=== PATIENT | female | born 1970 | race Caucasian/White ===

== ENCOUNTER 2016-11-20 12:49 | Emergency (ER) | payer OTHER ==
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
--- NOTE | 2016-11-20 14:39 | ED MAR SUMMARY ---
..... Medication Administration [facility] [address] [place], [place] [id number] Patient: MAYE FELIX Visit ID: [id number] 46y, F Weight: 133.8 kg Height/Length: 65 in BMI: 49.1 ALLERGIES: No Known Drug Allergy
--- NOTE | 2016-11-20 14:39 | ED DISCHARGE INSTRUCTIONS ---
Patient: MAYE FELIX General Instructions [facility] VisitID: [id number] [place] [address] 46y, F Registration Date/Time: 11/20/2016 Acute viral sinusitis. No airway obstruction. INSTRUCTIONS Alternate Tylenol (Acetaminophen) and Motrin (Ibuprofen) for fever, temperature greater than 101 degrees orally. Take according to label instructions. Drink plenty of fluids for the next 24 hours until better. Warnings: GENERAL WARNINGS: Return or contact your physician immediately if your condition worsens or changes unexpectedly, if not improving as expected, or if other problems arise. Specifically return if problem worsens. Prescription Medications: Nasacort nasal spray: 2 sprays in each nostril once daily as needed for allergies. Dispense one (1) unit. No refills. Substitution is permissible. Follow-up: Follow up with your doctor in about five days as needed. Call for an appointment. Summary of care provided to patient. Understanding of the discharge instructions verbalized by patient. ADDITIONAL INFORMATION Viral Respiratory Illness [Adult] You have an Upper Respiratory Illness (URI) caused by a virus. This illness is contagious during the first few days. It is spread through the air by coughing and sneezing or by direct contact (touching the sick person and then touching your own eyes, nose or mouth). Most viral illnesses go away within 7-10 days with rest and simple home remedies. Sometimes, the illness may last for several weeks. Antibiotics will not kill a virus and are generally not prescribed for this condition. Home Care: 1) If symptoms are severe, rest at home for the first 2-3 days. When you resume activity, don't let yourself get too tired. 2) Avoid being exposed to cigarette smoke (yours or others). 3) Tylenol (acetaminophen) or ibuprofen (Advil, Motrin) will help fever, muscle aching and headache. (Persons under 18 with fever should not take aspirin since this may cause liver damage.) 4) Your appetite may be poor, so a light diet is fine. Avoid dehydration by drinking 6-8 glasses of fluids per day (water, soft drinks, juices, tea, soup). Extra fluids will help loosen secretions in the nose and lungs. 5) Jgyn-[id number] cold medicines will not shorten the length of time youre sick, but they may be helpful for the following symptoms: cough (Robitussin DM); sore throat (Chloraseptic lozenges or spray); nasal and sinus congestion (Actifed, Sudafed, Chlortrimeton). Follow Up with your doctor or as advised if you dont improve over the next week. Get Prompt Medical Attention if any of the following occur: -- Cough with lots of colored sputum (mucus) or blood in your sputum -- Chest pain, shortness of breath, wheezing or have trouble breathing -- Severe headache; face, neck or ear pain -- Fever over 100.4 F (38.0 C) for more than three days -- You cant swallow due to throat pain Fever Control (Adult) A fever is a natural reaction of the body to an illness. In most cases, the temperature itself is not harmful. It actually helps the body fight infections. A fever does not need to be treated unless you feel very uncomfortable. Home Care If you feel warm, check your temperature. If you feel very uncomfortable and your temperature is at or higher than 100.4F (38C) oral, you may take acetaminophen (Tylenol) every 4 to 6 hours. If you cant take or keep down oral medicine, ask your pharmacist for Tylenol suppositories, which you can get without a prescription. If the fever does not respond to acetaminophen within 1 hour, take ibuprofen (Advil or Motrin). If this works, keep taking the ibuprofen every 6 to 8 hours. Note: If you have chronic liver or kidney disease or ever had a stomach ulcer or GI bleeding, talk with your doctor before using these medications. If either medication alone does not keep the fever down, you may alternate the two medicines every 3 to 4 hours, only if your healthcare provider has instructed you to do so. For example, take Motrin then wait 3 hours, take Tylenol then wait 3 hours, take Motrin, and so on. Follow your healthcare providers instructions exactly. Clothing: Keep clothing light because excess body heat is lost through the skin. The fever will go up if you wear extra layers or wrap in blankets. Fluids: Fever causes the body to lose water through evaporation. Drink plenty of fluids such as water, juice, clear sodas, samy hiren, or lemonade. Do not use aspirin in anyone under 18 years of age who is ill with a fever. It can cause severe liver damage. Follow Up with your doctor or as advised by our staff if you do not get better after 48 hours. Get Prompt Medical Attention if any of the following occur: Fever does not get better after taking fever medication Fast or difficult breathing Earache, sinus pain, stiff or painful neck, headache, repeated diarrhea or vomiting You feel unusually irritable, drowsy, or confused A rash appears You feel weak or dizzy, or that you might faint Triamcinolone Acetonide Nasal spray What is this medicine? TRIAMCINOLONE (trye am SIN oh lone) nasal spray is a corticosteroid. It is used to treat the nasal symptoms of seasonal and year round allergies. How should I use this medicine? This medicine is for use in the nose. Follow the directions on your prescription label. This medicine works best if used regularly. Do not use more often than directed. Make sure that you are using your nasal spray correctly. Ask you doctor or health care provider if you have any questions. Talk to your chucking and sawing machine operator regarding the use of this medicine in children. While this drug may be prescribed for children as young as 2 years of age for selected conditions, precautions do apply. What side effects may I notice from receiving this medicine? Side effects that you should report to your doctor or health residential child care counselor as soon as possible: allergic reactions like skin rash, itching or hives, swelling of the face, lips, or tongue change in vision dizziness infection nosebleed, burning in the nose trouble breathing, wheezing unusual bruising white patches or sores in the nose Side effects that usually do not require medical attention (report to your doctor or health residential child care counselor if they continue or are bothersome): congestion cough headache nausea runny nose sneezing What may interact with this medicine? Interactions are not expected. What if I miss a dose? If you miss a dose, take it as soon as you can. If it is almost time for your next dose, take only that dose. Do not take double or extra doses. Where should I keep my medicine? Keep out of the reach of children. Store at room temperature between 20 and 25 degrees C (68 and 77 degrees F). Throw away the canister after 120 sprays or after the expiration date, whichever comes first. What should I tell my health care provider before I take this medicine? They need to know if you have any of these conditions: infection, like tuberculosis, herpes, or fungal infection recent surgery or injury of nose or sinuses taking corticosteroids by mouth an unusual or allergic reaction to triamcinolone, corticosteroids, other medicines, foods, dyes, or preservatives or trying to get breast-feeding What should I watch for while using this medicine? Check with your doctor or health residential child care counselor if your symptoms do not improve in 1 week of regular use or if they get worse. Do not come in contact with people who have chickenpox or the measles while you are taking this medicine. If you do, call your doctor right away. You have been given the following additional information: Uri, Viral, No Abx (Adult) Fever Control (Adult) Triamcinolone Acetonide Nasal spray (Electronically signed by Sherley Haider A.R.N.P. 11/20/2016 14:38)
--- NOTE | 2016-11-20 14:39 | ED MED RECONCILIATION SUMMARY ---
Patient: MAYE FELIX Medication Reconciliation Report [facility] VisitID: [id number] [address] [place] [address] 46y, F Registration Date/Time: 11/20/2016 Weight: 133.8 kg Height/Length: 65 in. BMI: 49.1 ALLERGIES: No Known Drug Allergy The patient's Home Medications are listed below: THE FOLLOWING MEDICATIONS NEED TO BE RECONCILED: Effexor XR Oral 75 mg Metoprolol Succinate ER Oral The source(s) of the original Home Medication information: Not obtained. The following Medications were given to the patient in the Emergency Department: None. The following Medications were prescribed to the patient: Nasacort nasal spray: 2 sprays in each nostril once daily as needed for allergies. Dispense one (1) unit. No refills. Substitution is permissible. -- Sherley Haider A.R.N.P.
--- NOTE | 2016-11-20 14:39 | ED MAR SUMMARY ---
..... Medication Administration Record [facility] [address] [place], [place] [id number] Patient: MAYE FELIX Visit ID: [id number] 46y, F Weight: 133.8 kg Height/Length: 65 in BMI: 49.1 ALLERGIES: No Known Drug Allergy
--- NOTE | 2016-11-20 14:39 | ED MED RECONCILIATION SUMMARY ---
Patient: MAYE FELIX Medication Reconciliation Report [facility] VisitID: [id number] [address] [place] [address] 46y, F Registration Date/Time: 11/20/2016 Weight: 133.8 kg Height/Length: 65 in. BMI: 49.1 ALLERGIES: No Known Drug Allergy The patient's Home Medications are listed below: THE FOLLOWING MEDICATIONS NEED TO BE RECONCILED: Effexor XR Oral 75 mg Metoprolol Succinate ER Oral The source(s) of the original Home Medication information: Not obtained. The following Medications were given to the patient in the Emergency Department: None. The following Medications were prescribed to the patient: Nasacort nasal spray: 2 sprays in each nostril once daily as needed for allergies. Dispense one (1) unit. No refills. Substitution is permissible. -- Sherley Hiader A.R.N.P.
== END 2016-11-20 14:08 | disposition home or self-care (01) ==
LOC: ED SRH 12:49
DX: J01.80 Other acute sinusitis (principal); B97.89 Other viral agents as the cause of diseases classified elsewhere

== ENCOUNTER 2016-12-15 17:13 | Emergency (ER) | payer OTHER ==
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
--- NOTE | 2016-12-15 20:37 | ED ORDER SUMMARY ---
..... Patient: MAYE FELIX OrderSheet [facility] VisitID: [id number] [address] [place] [address] 46y, F Registration Date/Time: 12/15/2016 ORDER SHEET Weight: 172.3 kg (stated) Allergies: No Known Drug Allergy GENERAL ORDERS: UA-Culture if indicated Urgent (18:48 12/15/2016 Jona Gonzalez.NLincoln verbal order read back to Chandrakant KOCH) (18:50 TBergley) MEDICATION ORDERS: Toradol IM 60 mg (NOW) (19:54 12/15/2016 Chandrakant KOCH) (20:27 Elizabeth Gonzalez.NLincoln) Dilaudid IM 2 mg (HIGH ALERT MEDICATION, NOW) (19:54 12/15/2016 Chandrakant KOCH) (20:27 Elizabeth Gonzalez.NLincoln) IV FLUIDS: ORDER SHEET NOTES: [Electronically signed by Rohit Bryan R.N. (20:51 12/15/2016)] [Electronically signed by Lyudmila Nguyen MD (11:16 12/19/2016)] [Electronically locked/signed by Rohit Bryan R.N. (20:51 12/15/2016)]
--- NOTE | 2016-12-15 20:37 | ED ORDER SUMMARY ---
..... Patient: MAYE FELIX OrderSheet [facility] VisitID: [id number] [address] [place] [address] 46y, F Registration Date/Time: 12/15/2016 ORDER SHEET Weight: 172.3 kg (stated) Allergies: No Known Drug Allergy GENERAL ORDERS: UA-Culture if indicated Urgent (18:48 12/15/2016 Jona Gonzalez.NLincoln verbal order read back to Chandrakant KOCH) (18:50 TBergley) MEDICATION ORDERS: Toradol IM 60 mg (NOW) (19:54 12/15/2016 Chandrakant KOCH) (20:27 Elizabeth Gonzalez.NLincoln) Dilaudid IM 2 mg (HIGH ALERT MEDICATION, NOW) (19:54 12/15/2016 Chandrakant KOCH) (20:27 Elizabeth Gonzalez.NLincoln) IV FLUIDS: ORDER SHEET NOTES: [Electronically signed by Rohit Bryan R.N. (20:51 12/15/2016)] [Electronically signed by Lyudmila Nguyen MD (11:16 12/19/2016)] [Electronically locked/signed by Rohit Bryan R.N. (20:51 12/15/2016)]
--- NOTE | 2016-12-19 11:16 | ED DISCHARGE INSTRUCTIONS ---
Patient: MAYE FELIX General Instructions [facility] VisitID: [id number] [address] [place] [address] 46y, F Registration Date/Time: 12/15/2016 Acute nontraumatic lumbar back pain associated with muscle strain. INSTRUCTIONS Apply ice for 20 minutes three times a day as needed and until better. Don't apply ice directly to skin and don't use while asleep. Warnings: SEDATIVE MEDICATION: You were given sedative medication during your visit. Do not drive or operate dangerous machinery for 6 hours. GENERAL WARNINGS: Return or contact your physician immediately if your condition worsens or changes unexpectedly, if not improving as expected, or if other problems arise. Your Current Medications: CONTINUE TAKING THE FOLLOWING MEDICATIONS: Effexor XR Oral : 75 mg. Metoprolol Succinate ER Oral. Prescription Medications: Hydrocodone/APAP 5mg / 325mg: take 1-2 orally every 4 hours as needed for pain. Dispense twenty (20). No refill. Follow-up: Follow up with your doctor in one week if not better. Understanding of the discharge instructions verbalized by patient. ADDITIONAL INFORMATION Back Spasm [No Trauma] Spasm of the back muscles can occur after a sudden forceful twisting or bending force (such as in a car accident), after a simple awkward movement, or after lifting something heavy with poor body positioning. In either case, muscle spasm is often present and adds to the pain.Sleeping in an awkward position or on a poor quality mattress can also cause this. Some persons respond to emotional stress by tensing the muscles of their back. The treatment described below will usually help the pain to go away in 5-7 days. Pain that continues may require further evaluation or other types of treatment such as physical therapy. Unless you had a physical injury (for example, a car accident or fall), x-rays are usually not ordered for the initial evaluation of back pain. If pain continues and does not respond to medical treatment, x-rays and other tests may be performed at a later time. Home Care: You may need to stay in bed the first few days. But, as soon as possible, begin sitting or walking to avoid problems with prolonged bed rest (muscle weakness, worsening back stiffness and pain, blood clots in the legs). When in bed, try to find a position of comfort. A firm mattress is best. Try lying flat on your back with pillows under your knees. You can also try lying on your side with your knees bent up toward your chest and a pillow between your knees. Avoid prolonged sitting. This puts more stress on the lower back than standing or walking. Some persons find relief with heat (hot shower, hot bath, or heating pad) and massage, while others prefer cold packs (crushed or cubed ice in a plastic bag, wrapped in a towel). Try both and use the method that feels best for 20 minutes several times a day. You may use acetaminophen (Tylenol) or ibuprofen (Motrin, Advil) to control pain, unless another pain medicine was prescribed. [NOTE: If you have chronic liver or kidney disease or ever had a stomach ulcer or GI bleeding, talk with your doctor before using these medicines.] Gentle stretching will help your back heal faster. Perform this simple routine 2-3 times a day until your back is feeling better. LOW BACK STRETCH Lie on your back with your knees bent and both feet on the ground. Slowly raise your left knee to your chest as you flatten your lower back against the floor. Hold for 5 seconds. Relax and repeat the exercise with your right knee. Do 10 of these exercises for each leg. Repeat, hugging both knees to your chest at the same time. Be aware of safe lifting methods and do not lift anything over 15 pounds until all the pain is gone. Follow Up with your doctor or this facility if your symptoms do not start to improve after one week. Physical therapy or further tests may be needed. [NOTE: If x-rays were taken, they will be reviewed by a radiologist. You will be notified of any new findings that may affect your care.] Return Promptly or contact your doctor if any of the following occurs: Pain becomes worse or spreads to your legs Weakness or numbness in one or both legs Loss of bowel or bladder control Numbness in the groin or genital area Unexplained fever over 100.4F (38.0C) Burning or pain when passing urine You have been given the following additional information: Back Spasm, No Trauma (Electronically signed by Lyudmila Nguyen MD 12/19/2016 11:16)
--- NOTE | 2016-12-19 11:16 | ED MAR SUMMARY ---
..... Medication Administration Record [facility] [address] [place] [address] Patient: MAYE FELIX Visit ID: [id number] 46y, F Weight: 172.3 kg Height/Length: 69 in BMI: 56.1 ALLERGIES: No Known Drug Allergy Given 20:12/15/2016 Rohit Bryan R.N. Medication Administered: TORADOL [IM] (KETOROLAC TROMETHAMINE), Dose: 60 mg IM. Medication Ordered: Toradol IM 60 mg (NOW). Given 20:12/15/2016 Rohit Bryan R.N. Medication Administered: DILAUDID [IM] (HYDROMORPHONE HCL PF), Dose: 2 mg IM. Medication Ordered: Dilaudid IM 2 mg (HIGH ALERT MEDICATION, NOW).
--- NOTE | 2016-12-19 11:16 | ED MED RECONCILIATION SUMMARY ---
Patient: MAYE FELIX Medication Reconciliation Report [facility] VisitID: [id number] [address] [place] [address] 46y, F Registration Date/Time: 12/15/2016 Weight: 172.3 kg Height/Length: 69 in. BMI: 56.1 ALLERGIES: No Known Drug Allergy The patient's Home Medications are listed below: CONTINUE TAKING THE FOLLOWING MEDICATIONS: Effexor XR Oral 75 mg Metoprolol Succinate ER Oral The source(s) of the original Home Medication information: Not obtained. The following Medications were given to the patient in the Emergency Department: Toradol [IM] IM 60 mg, administered: 12/15/2016 8:27:00 PM Dilaudid [IM] IM 2 mg, administered: 12/15/2016 8:27:00 PM The following Medications were prescribed to the patient: Hydrocodone/APAP 5mg / 325mg: take 1-2 orally every 4 hours as needed for pain. Dispense twenty (20). No refill. -- Lyudmila Nguyen MD
--- NOTE | 2016-12-19 11:16 | ED MED RECONCILIATION SUMMARY ---
Patient: MAYE FELIX Medication Reconciliation Report VisitID: [id number] [address] [place] [address] 46y, F Registration Date/Time: 12/15/2016 Weight: 172.3 kg Height/Length: 69 in. BMI: 56.1 ALLERGIES: No Known Drug Allergy The patient's Home Medications are listed below: CONTINUE TAKING THE FOLLOWING MEDICATIONS: Effexor XR Oral 75 mg Metoprolol Succinate ER Oral The source(s) of the original Home Medication information: Not obtained. The following Medications were given to the patient in the Emergency Department: Toradol [IM] IM 60 mg, administered: 12/15/2016 8:27:00 PM Dilaudid [IM] IM 2 mg, administered: 12/15/2016 8:27:00 PM The following Medications were prescribed to the patient: Hydrocodone/APAP 5mg / 325mg: take 1-2 orally every 4 hours as needed for pain. Dispense twenty (20). No refill. -- Lyudmila Nguyen MD
--- NOTE | 2016-12-19 11:16 | ED MAR SUMMARY ---
..... Medication Administration Record [facility] [address] [place] [address] Patient: MAYE FELIX Visit ID: [id number] 46y, F Weight: 172.3 kg Height/Length: 69 in BMI: 56.1 ALLERGIES: No Known Drug Allergy Given 20:12/15/2016 Rohit Bryan R.N. Medication Administered: TORADOL [IM] (KETOROLAC TROMETHAMINE), Dose: 60 mg IM. Medication Ordered: Toradol IM 60 mg (NOW). Given 20:12/15/2016 Rohit Bryan R.N. Medication Administered: DILAUDID [IM] (HYDROMORPHONE HCL PF), Dose: 2 mg IM. Medication Ordered: Dilaudid IM 2 mg (HIGH ALERT MEDICATION, NOW).
== END 2016-12-15 20:55 | disposition home or self-care (01) ==
LOC: ED SRH 17:13
DX: S39.012A Strain of muscle, fascia and tendon of lower back, initial encounter (principal); X58.XXXA Exposure to other specified factors, initial encounter; Y93.9 Activity, unspecified; Y92.9 Unspecified place or not applicable; Y99.9 Unspecified external cause status; I10 Essential (primary) hypertension; Z79.899 Other long term (current) drug therapy
CPT/HCPCS: 90004

== ENCOUNTER 2017-03-10 19:24 | Emergency (ER) | payer OTHER ==
--- NOTE | 2017-03-10 20:33 | ED NURSING NOTES ---
Clinical Report - Nurses [facility] [place] [address] 03/10/2017 19:25 Patient: MAYE FELIX TRIAGE Triage time 19:43. Acuity: LEVEL 4. Chief Complaint: INJURY TO THE RIGHT SCAPULA AREA, RIGHT SHOULDER and RIGHT CLAVICLE AREA. --19:48 Romi Kent R.N. 19:43 03/10/17. BP: 147/75. HR: 80. RR: 18. O2 saturation: 95%. Temp: 97.9 F. Pain level now: 06/01. --19:48 Romi Kent R.N. Weight: 172.3 kg stated. Height/Length: 69 inches Per Patient. BMI: 56.1. --19:45 Romi Kent R.N. Medications Unknown Blood Pressure Medicine. --19:44 Romi Kent R.N. Allergies No Known Drug Allergy. --19:44 Romi Kent R.N. History This occurred today (5 hours ago). ( right arm aching). 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 SOCIAL HX: Never smoker. Alcohol use; consumes beer occasionally. No drug use. --19:48 Romi Kent R.N. PROBLEMS: Depression . Back Pain. URI. Hypertension. Arthritis. --19:44 Romi Kent R.N. ADDITIONAL SURGERIES: Breast reduction. Salpingectomy. Tonsillectomy. Wrist cyst removal. --19:44 Romi Kent R.N. Interventions ID band on patient. To treatment room. --19:48 Romi Kent R.N. PHYSICAL ASSESSMENT Ambulatory to room. GENERAL / NEURO / PSYCH: Oriented X 4. Appears in no acute distress. HEENT: Right clavicle area: tenderness. EXTREMITIES: Right scapula area: tenderness. Capillary refill is less than 2 seconds in the extremities. Extremity pulses are within normal limits. Neuro-vascular status intact to the extremity. Right shoulder: tenderness. ( ROM diminited due to pain.). SKIN: Skin is warm and dry. --19:48 Romi Kent R.N. NURSING PROGRESS NOTES Cold pack applied. Reassurance given. Call light placed in reach. Side rails up x 1. Patient ready for evaluation- chart flagged. Patient waiting for evaluation. --19:48 Romi Kent R.N. 20:39 03/10/2017 Ativan (LORazepam) PO Tablets 2 mg given. Allergies verified, confirmed 5 rights and sedative warning given to the patient and patient's family. --20:39 Romi Kent R.N. 20:39 03/10/2017 Toradol (Ketorolac Tromethamine) IM 60 mg given. Given in the right gluteus jerel. Allergies verified and confirmed 5 rights. --20:39 Romi Kent R.N. DISPOSITION / DISCHARGE Condition at departure: unchanged and stable. Discharge instructions provided and reviewed with the patient and family. Reviewed warnings (sedative effect of ativan given in ER). Reviewed medication(s) side effects, precautions and dosing information. Prescription(s) given to the patient. Patient and family verbalized understanding. Written instructions provided in [place]. The patient was discharged by the physician assistant city attorney. She was discharged home and accompanied by family. She left the Emergency Department ambulatory and via private vehicle. Family member driving. --20:47 Romi Kent R.N. 20:46 03/10/17. BP: 168/86. HR: 74. RR: 18. O2 saturation: 94%. Pain level now: 04/01. --20:47 Romi Kent R.N. Departure time: 2047. --20:48 Romi Kent R.N. Locked/Released at 03/13/2017 8:13 by Romi Kent R.N.
--- NOTE | 2017-03-10 20:33 | ED CLINICAL REPORT ---
Clinical Report - Physicians/Mid Levels [facility] [address] [place] [address] 03/10/2017 19:25 Patient: MAYE FELIX Time Seen: 20:24 Mar 10 2017. Arrived- By private vehicle. HISTORY OF PRESENT ILLNESS Location of injuries- upper back. Chief Complaint: Injury to BACK. The injury occurred today about 6 hours ago. 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 she felt a sharppain across her back. no weakness or numbness. no previous injuries in this location.). Occurred at work. The patient complains of moderate pain. No blow to the head, neck pain or loss of consciousness. REVIEW OF SYSTEMS No numbness, weakness, difficulty breathing, nausea or vomiting. All systems otherwise negative, except as recorded above. PAST HISTORY See nurses notes. SOCIAL HISTORY Never smoker. Alcohol use. ADDITIONAL NOTES The nursing notes have been reviewed. PHYSICAL EXAM Appearance: Alert. Oriented X3. No acute distress. Head: No swelling of head. Neck: Painless ROM. Non-tender. CVS: Heart sounds normal. Pulses normal. Respiratory: Breath sounds normal. Chest nontender. No decreased breath sounds. Back: Moderate tenderness in the right upper thoracic area. Mild muscle spasm in the right upper thoracic spine region. ROM normal. No vertebral point tenderness. Skin: Skin intact. Skin warm and dry. Normal skin color. Normal skin turgor. Extremities: Normal inspection. Extremities atraumatic. Neuro: Oriented X 3. No motor deficit. No sensory deficit. PROGRESS AND PROCEDURES Course of Care: 20:28 03/10/17. Pt stable. She has mild muscle spasm with pain on palpation. I discussed muscle strain and usual course. symptomatic treatment here and will discharge home. i completed her workers comp paperwork. Discharge decision based on the following: patient's condition is stable; patient's condition is improved; social support is adequate; transportation is available; clinical impression is consistent with outpatient treatment. CLINICAL IMPRESSION Muscle strain of the upper back. INSTRUCTIONS Right arm until well and for 5 days. Do not work for two days. No dietary restrictions. Warnings: SEDATIVE MEDICATION: You were given sedative medication during your visit. Do not drive or operate dangerous machinery today. CONTROLLED SUBSTANCE WARNINGS. Prescription Medications: Hydrocodone/APAP 5mg / 325mg: take 1-2 orally every 6 hours as needed for pain. Dispense fifteen (15). No refill. Flexeril 5 mg: take 1-2 orally every 8 hours as needed for muscle spasm. Dispense ten (10). No refills. Substitution is permissible. OTC Medications: Motrin IB 200 mg (available over the counter): take 3 orally every 8 hours for 5 days, as needed for pain or stiffness Understanding of the discharge instructions verbalized by patient. (Electronically signed by Jeffy Grayson, 03/10/2017 23:12)
--- NOTE | 2017-03-10 20:33 | ED ORDER SUMMARY ---
..... Patient: MAYE FELIX OrderSheet [facility] VisitID: [id number] [address] [place] [address] 47y, F Registration Date/Time: 03/10/2017 ORDER SHEET Weight: 172.3 kg (stated) Allergies: No Known Drug Allergy GENERAL ORDERS: MEDICATION ORDERS: Ativan PO 2 mg (NOW) (20:03/10/2017 JCoates) (20:39 SStone R.N.) Toradol IM 60 mg (NOW) (20:03/10/2017 JCoates) (20:39 SStone R.N.) IV FLUIDS: ORDER SHEET NOTES: [Electronically signed by Jeffy Grayson (23:12 03/10/2017)] [Electronically signed by Romi Kent R.N. (08:13 03/13/2017)] [Electronically locked/signed by Romi Kent R.N. (08:13 03/13/2017)]
--- NOTE | 2017-03-10 20:33 | ED NURSING NOTES ---
Clinical Report - Nurses [facility] [place] [address] 03/10/2017 19:25 Patient: MAYE FELIX TRIAGE Triage time 19:43. Acuity: LEVEL 4. Chief Complaint: INJURY TO THE RIGHT SCAPULA AREA, RIGHT SHOULDER and RIGHT CLAVICLE AREA. --19:48 Romi Kent R.N. 19:43 03/10/17. BP: 147/75. HR: 80. RR: 18. O2 saturation: 95%. Temp: 97.9 F. Pain level now: 06/01. --19:48 Romi Kent R.N. Weight: 172.3 kg stated. Height/Length: 69 inches Per Patient. BMI: 56.1. --19:45 Romi Kent R.N. Medications Unknown Blood Pressure Medicine. --19:44 Romi Kent R.N. Allergies No Known Drug Allergy. --19:44 Romi Kent R.N. History This occurred today (5 hours ago). ( right arm aching). 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 SOCIAL HX: Never smoker. Alcohol use; consumes beer occasionally. No drug use. --19:48 Romi Kent R.N. PROBLEMS: Depression . Back Pain. URI. Hypertension. Arthritis. --19:44 Romi Kent R.N. ADDITIONAL SURGERIES: Breast reduction. Salpingectomy. Tonsillectomy. Wrist cyst removal. --19:44 Romi Kent R.N. Interventions ID band on patient. To treatment room. --19:48 Romi Kent R.N. PHYSICAL ASSESSMENT Ambulatory to room. GENERAL / NEURO / PSYCH: Oriented X 4. Appears in no acute distress. HEENT: Right clavicle area: tenderness. EXTREMITIES: Right scapula area: tenderness. Capillary refill is less than 2 seconds in the extremities. Extremity pulses are within normal limits. Neuro-vascular status intact to the extremity. Right shoulder: tenderness. ( ROM diminited due to pain.). SKIN: Skin is warm and dry. --19:48 Romi Kent R.N. NURSING PROGRESS NOTES Cold pack applied. Reassurance given. Call light placed in reach. Side rails up x 1. Patient ready for evaluation- chart flagged. Patient waiting for evaluation. --19:48 Romi Kent R.N. 20:39 03/10/2017 Ativan (LORazepam) PO Tablets 2 mg given. Allergies verified, confirmed 5 rights and sedative warning given to the patient and patient's family. --20:39 Romi Kent R.N. 20:39 03/10/2017 Toradol (Ketorolac Tromethamine) IM 60 mg given. Given in the right gluteus jerel. Allergies verified and confirmed 5 rights. --20:39 Romi Kent R.N. DISPOSITION / DISCHARGE Condition at departure: unchanged and stable. Discharge instructions provided and reviewed with the patient and family. Reviewed warnings (sedative effect of ativan given in ER). Reviewed medication(s) side effects, precautions and dosing information. Prescription(s) given to the patient. Patient and family verbalized understanding. Written instructions provided in Rwand[place]. The patient was discharged by the physician press assistant and feeder. She was discharged home and accompanied by family. She left the Emergency Department ambulatory and via private vehicle. Family member driving. --20:47 Romi Kent R.N. 20:46 03/10/17. BP: 168/86. HR: 74. RR: 18. O2 saturation: 94%. Pain level now: 04/01. --20:47 Romi Kent R.N. Departure time: 2047. --20:48 Romi Kent R.N. Locked/Released at 03/13/2017 8:13 by Romi Kent R.N.
--- NOTE | 2017-03-10 20:33 | ED ORDER SUMMARY ---
..... Patient: MAYE FELIX OrderSheet [facility] VisitID: [id number] [address] [place] [address] 47y, F Registration Date/Time: 03/10/2017 ORDER SHEET Weight: 172.3 kg (stated) Allergies: No Known Drug Allergy GENERAL ORDERS: MEDICATION ORDERS: Ativan PO 2 mg (NOW) (20:03/10/2017 JCoates) (20:39 SStone R.N.) Toradol IM 60 mg (NOW) (20:03/10/2017 JCoates) (20:39 SStone R.N.) IV FLUIDS: ORDER SHEET NOTES: [Electronically signed by Jeffy Grayson (23:12 03/10/2017)] [Electronically signed by Romi Kent R.N. (08:13 03/13/2017)] [Electronically locked/signed by Romi Kent R.N. (08:13 03/13/2017)]
--- NOTE | 2017-03-13 08:13 | ED MAR SUMMARY ---
..... Medication Administration Record [facility] [address] [place] [address] Patient: MAYE FELIX Visit ID: [id number] 47y, F Weight: 172.3 kg Height/Length: 69 in BMI: 56.1 ALLERGIES: No Known Drug Allergy Given 20:03/10/2017 Romi Kent R.N. Medication Administered: ATIVAN [PO] (LORAZEPAM), Dose: 2 mg Tablets PO. Medication Ordered: Ativan PO 2 mg (NOW). Given 20:03/10/2017 Romi Kent RLincolnNLincoln Medication Administered: TORADOL [IM] (KETOROLAC TROMETHAMINE), Dose: 60 mg IM. Medication Ordered: Toradol IM 60 mg (NOW).
--- NOTE | 2017-03-13 08:13 | ED DISCHARGE INSTRUCTIONS ---
Patient: MAYE FELIX General Instructions [facility] VisitID: [id number] [place] [address] 47y, F Registration Date/Time: 03/10/2017 Muscle strain of the upper back. INSTRUCTIONS Right arm until well and for 5 days. Do not work for two days. No dietary restrictions. Warnings: SEDATIVE MEDICATION: You were given sedative medication during your visit. Do not drive or operate dangerous machinery today. CONTROLLED SUBSTANCE WARNINGS. Prescription Medications: Hydrocodone/APAP 5mg / 325mg: take 1-2 orally every 6 hours as needed for pain. Dispense fifteen (15). No refill. Flexeril 5 mg: take 1-2 orally every 8 hours as needed for muscle spasm. Dispense ten (10). No refills. Substitution is permissible. OTC Medications: Motrin IB 200 mg (available over the counter): take 3 orally every 8 hours for 5 days, as needed for pain or stiffness Understanding of the discharge instructions verbalized by patient. ADDITIONAL INFORMATION Hydrocodone Bitartrate, Acetaminophen Oral tablet What is this medicine? ACETAMINOPHEN; HYDROCODONE (a set a EDDA sylvia fen; jenni droe KOE done) is a pain reliever. It is used to treat mild to moderate pain. How should I use this medicine? Take this medicine by mouth. Swallow it with a full glass of water. Follow the directions on the prescription label. If the medicine upsets your stomach, take the medicine with food or milk. Do not take more than you are told to take. Talk to your geosciences professor regarding the use of this medicine in children. This medicine is not approved for use in children. What side effects may I notice from receiving this medicine? Side effects that you should report to your doctor or health care program resident as soon as possible: allergic reactions like skin rash, itching or hives, swelling of the face, lips, or tongue breathing problems confusion feeling faint or lightheaded, falls stomach pain yellowing of the eyes or skin Side effects that usually do not require medical attention (report to your doctor or health care program resident if they continue or are bothersome): nausea, vomiting stomach upset What may interact with this medicine? alcohol antihistamines isoniazid medicines for depression, anxiety, or psychotic disturbances medicines for sleep muscle relaxants naltrexone narcotic medicines (opiates) for pain phenobarbital ritonavir tramadol What if I miss a dose? If you miss a dose, take it as soon as you can. If it is almost time for your next dose, take only that dose. Do not take double or extra doses. Where should I keep my medicine? Keep out of the reach of children. This medicine can be abused. Keep your medicine in a safe place to protect it from theft. Do not share this medicine with anyone. Selling or giving away this medicine is dangerous and against the law. Store at room temperature between 15 and 30 degrees C (59 and 86 degrees F). Protect from light. Keep container tightly closed. Throw away any unused medicine after the expiration date. Discard unused medicine and used packaging carefully. Pets and children can be harmed if they find used or lost packages. What should I tell my health care provider before I take this medicine? They need to know if you have any of these conditions: brain tumor Crohn's disease, inflammatory bowel disease, or ulcerative colitis drink more than 3 alcohol-containing drinks per day drug abuse or addiction head injury heart or circulation problems kidney disease or problems going to the bathroom liver disease lung disease, asthma, or breathing problems an unusual or allergic reaction to acetaminophen, hydrocodone, other opioid analgesics, other medicines, foods, dyes, or preservatives or trying to get breast-feeding What should I watch for while using this medicine? Tell your doctor or health care program resident if your pain does not go away, if it gets worse, or if you have new or a different type of pain. You may develop tolerance to the medicine. Tolerance means that you will need a higher dose of the medicine for pain relief. Tolerance is normal and is expected if you take the medicine for a long time. Do not suddenly stop taking your medicine because you may develop a severe reaction. Your body becomes used to the medicine. This does NOT mean you are addicted. Addiction is a behavior related to getting and using a drug for a non-medical reason. If you have pain, you have a medical reason to take pain medicine. Your doctor will tell you how much medicine to take. If your doctor wants you to stop the medicine, the dose will be slowly lowered over time to avoid any side effects. You may get drowsy or dizzy when you first start taking the medicine or change doses. Do not drive, use machinery, or do anything that may be dangerous until you know how the medicine affects you. Stand or sit up slowly. There are different types of narcotic medicines (opiates) for pain. If you take more than one type at the same time, you may have more side effects. Give your health care provider a list of all medicines you use. Your doctor will tell you how much medicine to take. Do not take more medicine than directed. Call emergency for help if you have problems breathing. The medicine will cause constipation. Try to have a bowel movement at least every 2 to 3 days. If you do not have a bowel movement for 3 days, call your doctor or health care program resident. Too much acetaminophen can be very dangerous. Do not take Tylenol (acetaminophen) or medicines that contain acetaminophen with this medicine. Many non-prescription medicines contain acetaminophen. Always read the labels carefully. Cyclobenzaprine Hydrochloride Oral tablet What is this medicine? CYCLOBENZAPRINE (syyolande ly) is a muscle relaxer. It is used to treat muscle pain, spasms, and stiffness. How should I use this medicine? Take this medicine by mouth with a glass of water. Follow the directions on the prescription label. If this medicine upsets your stomach, take it with food or milk. Take your medicine at regular intervals. Do not take it more often than directed. Talk to your geosciences professor regarding the use of this medicine in children. Special care may be needed. What side effects may I notice from receiving this medicine? Side effects that you should report to your doctor or health care program resident as soon as possible: allergic reactions like skin rash, itching or hives, swelling of the face, lips, or tongue chest pain fast heartbeat hallucinations seizures vomiting Side effects that usually do not require medical attention (report to your doctor or health care program resident if they continue or are bothersome): headache What may interact with this medicine? Do not take this medicine with any of the following medications: cisapride droperidol flecainide grepafloxacin halofantrine levomethadyl MAOIs like Carbex, Eldepryl, Marplan, Nardil, and Parnate nilotinib pimozide probucol sertindole This medicine may also interact with the following medications: abarelix alcohol contrast dyes dolasetron guanethidine medicines for cancer medicines for depression, anxiety, or psychotic disturbances medicines to treat an irregular heartbeat medicines used for sleep or numbness during surgery or procedure methadone octreotide ondansetron palonosetron phenothiazines like chlorpromazine, mesoridazine, prochlorperazine, thioridazine some medicines for infection like alfuzosin, chloroquine, clarithromycin, levofloxacin, mefloquine, pentamidine, troleandomycin tramadol vardenafil What if I miss a dose? If you miss a dose, take it as soon as you can. If it is almost time for your next dose, take only that dose. Do not take double or extra doses. Where should I keep my medicine? Keep out of the reach of children. Store at room temperature between 15 and 30 degrees C (59 and 86 degrees F). Keep container tightly closed. Throw away any unused medicine after the expiration date. What should I tell my health care provider before I take this medicine? They need to know if you have any of these conditions: heart disease, irregular heartbeat, or previous heart attack liver disease thyroid problem an unusual or allergic reaction to cyclobenzaprine, tricyclic antidepressants, lactose, other medicines, foods, dyes, or preservatives or trying to get breast-feeding What should I watch for while using this medicine? Check with your doctor or health care program resident if your condition does not improve within 1 to 3 weeks. You may get drowsy or dizzy when you first start taking the medicine or change doses. Do not drive, use machinery, or do anything that may be dangerous until you know how the medicine affects you. Stand or sit up slowly. Your mouth may get dry. Drinking water, chewing sugarless gum, or sucking on hard candy may help. Ibuprofen Oral tablet What is this medicine? IBUPROFEN (eye BYOO proe fen) is a non-steroidal anti-inflammatory drug (NSAID). It is used for dental pain, fever, headaches or migraines, osteoarthritis, rheumatoid arthritis, or painful monthly periods. It can also relieve minor aches and pains caused by a cold, flu, or sore throat. How should I use this medicine? Take this medicine by mouth with a glass of water. Follow the directions on the prescription label. Take this medicine with food if your stomach gets upset. Try to not lie down for at least 10 minutes after you take the medicine. Take your medicine at regular intervals. Do not take your medicine more often than directed. A special MedGuide will be given to you by the pharmacist with each prescription and refill. Be sure to read this information carefully each time. Talk to your geosciences professor regarding the use of this medicine in children. Special care may be needed. What side effects may I notice from receiving this medicine? Side effects that you should report to your doctor or health care program resident as soon as possible: allergic reactions like skin rash, itching or hives, swelling of the face, lips, or tongue black or bloody stools, blood in the urine or in vomit breathing problems changes in vision chest pain general ill feeling or flu-like symptoms nausea or vomiting redness, blistering, peeling or loosening of the skin, including inside the mouth slurred speech or weakness on one side of the body stomach pain unexplained weight gain or swelling unusually weak or tired yellowing of eyes or skin Side effects that usually do not require medical attention (report to your doctor or health care program resident if they continue or are bothersome): constipation or diarrhea dizziness gas or heartburn stomach upset What may interact with this medicine? Do not take this medicine with any of the following medications: cidofovir ketorolac methotrexate pemetrexed This medicine may also interact with the following medications: alcohol aspirin diuretics lithium other drugs for inflammation like prednisone warfarin What if I miss a dose? If you miss a dose, take it as soon as you can. If it is almost time for your next dose, take only that dose. Do not take double or extra doses. Where should I keep my medicine? Keep out of the reach of children. Store at room temperature between 15 and 30 degrees C (59 and 86 degrees F). Keep container tightly closed. Throw away any unused medicine after the expiration date. What should I tell my health care provider before I take this medicine? They need to know if you have any of these conditions: asthma cigarette smoker drink more than 3 alcohol containing drinks a day heart disease or circulation problems such as heart failure or leg edema (fluid retention) high blood pressure kidney disease liver disease stomach bleeding or ulcers an unusual or allergic reaction to ibuprofen, aspirin, other NSAIDS, other medicines, foods, dyes, or preservatives or trying to get breast-feeding What should I watch for while using this medicine? Tell your doctor or healthcare professional if your symptoms do not start to get better or if they get worse. This medicine does not prevent heart attack or stroke. In fact, this medicine may increase the chance of a heart attack or stroke. The chance may increase with longer use of this medicine and in people who have heart disease. If you take aspirin to prevent heart attack or stroke, talk with your doctor or health care program resident. Do not take other medicines that contain aspirin, ibuprofen, or naproxen with this medicine. Side effects such as stomach upset, nausea, or ulcers may be more likely to occur. Many medicines available without a prescription should not be taken with this medicine. This medicine can cause ulcers and bleeding in the stomach and intestines at any time during treatment. Ulcers and bleeding can happen without warning symptoms and can cause . To reduce your risk, do not smoke cigarettes or drink alcohol while you are taking this medicine. You may get drowsy or dizzy. Do not drive, use machinery, or do anything that needs mental alertness until you know how this medicine affects you. Do not stand or sit up quickly, especially if you are an older patient. This reduces the risk of dizzy or fainting spells. This medicine can cause you to bleed more easily. Try to avoid damage to your teeth and gums when you brush or floss your teeth. You have been given the following additional information: Hydrocodone Bitartrate, Acetaminophen Oral tablet Cyclobenzaprine Hydrochloride Oral tablet Ibuprofen Oral tablet Right arm until well and for 5 days. Do not work for two days. (Electronically signed by Jeffy Grayson, 03/10/2017 23:12)
--- NOTE | 2017-03-13 08:13 | ED DISCHARGE INSTRUCTIONS ---
Patient: MAYE FELIX General Instructions [facility] VisitID: [id number] [address]anna [place] [address] 47y, F Registration Date/Time: 03/10/2017 Muscle strain of the upper back. INSTRUCTIONS Right arm until well and for 5 days. Do not work for two days. No dietary restrictions. Warnings: SEDATIVE MEDICATION: You were given sedative medication during your visit. Do not drive or operate dangerous machinery today. CONTROLLED SUBSTANCE WARNINGS. Prescription Medications: Hydrocodone/APAP 5mg / 325mg: take 1-2 orally every 6 hours as needed for pain. Dispense fifteen (15). No refill. Flexeril 5 mg: take 1-2 orally every 8 hours as needed for muscle spasm. Dispense ten (10). No refills. Substitution is permissible. OTC Medications: Motrin IB 200 mg (available over the counter): take 3 orally every 8 hours for 5 days, as needed for pain or stiffness Understanding of the discharge instructions verbalized by patient. ADDITIONAL INFORMATION Hydrocodone Bitartrate, Acetaminophen Oral tablet What is this medicine? ACETAMINOPHEN; HYDROCODONE (a set a EDDA sylvia fen; jenni droe KOE done) is a pain reliever. It is used to treat mild to moderate pain. How should I use this medicine? Take this medicine by mouth. Swallow it with a full glass of water. Follow the directions on the prescription label. If the medicine upsets your stomach, take the medicine with food or milk. Do not take more than you are told to take. Talk to your prosthodontist regarding the use of this medicine in children. This medicine is not approved for use in children. What side effects may I notice from receiving this medicine? Side effects that you should report to your doctor or health health care specialist as soon as possible: allergic reactions like skin rash, itching or hives, swelling of the face, lips, or tongue breathing problems confusion feeling faint or lightheaded, falls stomach pain yellowing of the eyes or skin Side effects that usually do not require medical attention (report to your doctor or health health care specialist if they continue or are bothersome): nausea, vomiting stomach upset What may interact with this medicine? alcohol antihistamines isoniazid medicines for depression, anxiety, or psychotic disturbances medicines for sleep muscle relaxants naltrexone narcotic medicines (opiates) for pain phenobarbital ritonavir tramadol What if I miss a dose? If you miss a dose, take it as soon as you can. If it is almost time for your next dose, take only that dose. Do not take double or extra doses. Where should I keep my medicine? Keep out of the reach of children. This medicine can be abused. Keep your medicine in a safe place to protect it from theft. Do not share this medicine with anyone. Selling or giving away this medicine is dangerous and against the law. Store at room temperature between 15 and 30 degrees C (59 and 86 degrees F). Protect from light. Keep container tightly closed. Throw away any unused medicine after the expiration date. Discard unused medicine and used packaging carefully. Pets and children can be harmed if they find used or lost packages. What should I tell my health care provider before I take this medicine? They need to know if you have any of these conditions: brain tumor Crohn's disease, inflammatory bowel disease, or ulcerative colitis drink more than 3 alcohol-containing drinks per day drug abuse or addiction head injury heart or circulation problems kidney disease or problems going to the bathroom liver disease lung disease, asthma, or breathing problems an unusual or allergic reaction to acetaminophen, hydrocodone, other opioid analgesics, other medicines, foods, dyes, or preservatives or trying to get breast-feeding What should I watch for while using this medicine? Tell your doctor or health health care specialist if your pain does not go away, if it gets worse, or if you have new or a different type of pain. You may develop tolerance to the medicine. Tolerance means that you will need a higher dose of the medicine for pain relief. Tolerance is normal and is expected if you take the medicine for a long time. Do not suddenly stop taking your medicine because you may develop a severe reaction. Your body becomes used to the medicine. This does NOT mean you are addicted. Addiction is a behavior related to getting and using a drug for a non-medical reason. If you have pain, you have a medical reason to take pain medicine. Your doctor will tell you how much medicine to take. If your doctor wants you to stop the medicine, the dose will be slowly lowered over time to avoid any side effects. You may get drowsy or dizzy when you first start taking the medicine or change doses. Do not drive, use machinery, or do anything that may be dangerous until you know how the medicine affects you. Stand or sit up slowly. There are different types of narcotic medicines (opiates) for pain. If you take more than one type at the same time, you may have more side effects. Give your health care provider a list of all medicines you use. Your doctor will tell you how much medicine to take. Do not take more medicine than directed. Call emergency for help if you have problems breathing. The medicine will cause constipation. Try to have a bowel movement at least every 2 to 3 days. If you do not have a bowel movement for 3 days, call your doctor or health health care specialist. Too much acetaminophen can be very dangerous. Do not take Tylenol (acetaminophen) or medicines that contain acetaminophen with this medicine. Many non-prescription medicines contain acetaminophen. Always read the labels carefully. Cyclobenzaprine Hydrochloride Oral tablet What is this medicine? CYCLOBENZAPRINE (syyolande ly) is a muscle relaxer. It is used to treat muscle pain, spasms, and stiffness. How should I use this medicine? Take this medicine by mouth with a glass of water. Follow the directions on the prescription label. If this medicine upsets your stomach, take it with food or milk. Take your medicine at regular intervals. Do not take it more often than directed. Talk to your prosthodontist regarding the use of this medicine in children. Special care may be needed. What side effects may I notice from receiving this medicine? Side effects that you should report to your doctor or health health care specialist as soon as possible: allergic reactions like skin rash, itching or hives, swelling of the face, lips, or tongue chest pain fast heartbeat hallucinations seizures vomiting Side effects that usually do not require medical attention (report to your doctor or health health care specialist if they continue or are bothersome): headache What may interact with this medicine? Do not take this medicine with any of the following medications: cisapride droperidol flecainide grepafloxacin halofantrine levomethadyl MAOIs like Carbex, Eldepryl, Marplan, Nardil, and Parnate nilotinib pimozide probucol sertindole This medicine may also interact with the following medications: abarelix alcohol contrast dyes dolasetron guanethidine medicines for cancer medicines for depression, anxiety, or psychotic disturbances medicines to treat an irregular heartbeat medicines used for sleep or numbness during surgery or procedure methadone octreotide ondansetron palonosetron phenothiazines like chlorpromazine, mesoridazine, prochlorperazine, thioridazine some medicines for infection like alfuzosin, chloroquine, clarithromycin, levofloxacin, mefloquine, pentamidine, troleandomycin tramadol vardenafil What if I miss a dose? If you miss a dose, take it as soon as you can. If it is almost time for your next dose, take only that dose. Do not take double or extra doses. Where should I keep my medicine? Keep out of the reach of children. Store at room temperature between 15 and 30 degrees C (59 and 86 degrees F). Keep container tightly closed. Throw away any unused medicine after the expiration date. What should I tell my health care provider before I take this medicine? They need to know if you have any of these conditions: heart disease, irregular heartbeat, or previous heart attack liver disease thyroid problem an unusual or allergic reaction to cyclobenzaprine, tricyclic antidepressants, lactose, other medicines, foods, dyes, or preservatives or trying to get breast-feeding What should I watch for while using this medicine? Check with your doctor or health health care specialist if your condition does not improve within 1 to 3 weeks. You may get drowsy or dizzy when you first start taking the medicine or change doses. Do not drive, use machinery, or do anything that may be dangerous until you know how the medicine affects you. Stand or sit up slowly. Your mouth may get dry. Drinking water, chewing sugarless gum, or sucking on hard candy may help. Ibuprofen Oral tablet What is this medicine? IBUPROFEN (eye BYOO proe fen) is a non-steroidal anti-inflammatory drug (NSAID). It is used for dental pain, fever, headaches or migraines, osteoarthritis, rheumatoid arthritis, or painful monthly periods. It can also relieve minor aches and pains caused by a cold, flu, or sore throat. How should I use this medicine? Take this medicine by mouth with a glass of water. Follow the directions on the prescription label. Take this medicine with food if your stomach gets upset. Try to not lie down for at least 10 minutes after you take the medicine. Take your medicine at regular intervals. Do not take your medicine more often than directed. A special MedGuide will be given to you by the pharmacist with each prescription and refill. Be sure to read this information carefully each time. Talk to your prosthodontist regarding the use of this medicine in children. Special care may be needed. What side effects may I notice from receiving this medicine? Side effects that you should report to your doctor or health health care specialist as soon as possible: allergic reactions like skin rash, itching or hives, swelling of the face, lips, or tongue black or bloody stools, blood in the urine or in vomit breathing problems changes in vision chest pain general ill feeling or flu-like symptoms nausea or vomiting redness, blistering, peeling or loosening of the skin, including inside the mouth slurred speech or weakness on one side of the body stomach pain unexplained weight gain or swelling unusually weak or tired yellowing of eyes or skin Side effects that usually do not require medical attention (report to your doctor or health health care specialist if they continue or are bothersome): constipation or diarrhea dizziness gas or heartburn stomach upset What may interact with this medicine? Do not take this medicine with any of the following medications: cidofovir ketorolac methotrexate pemetrexed This medicine may also interact with the following medications: alcohol aspirin diuretics lithium other drugs for inflammation like prednisone warfarin What if I miss a dose? If you miss a dose, take it as soon as you can. If it is almost time for your next dose, take only that dose. Do not take double or extra doses. Where should I keep my medicine? Keep out of the reach of children. Store at room temperature between 15 and 30 degrees C (59 and 86 degrees F). Keep container tightly closed. Throw away any unused medicine after the expiration date. What should I tell my health care provider before I take this medicine? They need to know if you have any of these conditions: asthma cigarette smoker drink more than 3 alcohol containing drinks a day heart disease or circulation problems such as heart failure or leg edema (fluid retention) high blood pressure kidney disease liver disease stomach bleeding or ulcers an unusual or allergic reaction to ibuprofen, aspirin, other NSAIDS, other medicines, foods, dyes, or preservatives or trying to get breast-feeding What should I watch for while using this medicine? Tell your doctor or healthcare professional if your symptoms do not start to get better or if they get worse. This medicine does not prevent heart attack or stroke. In fact, this medicine may increase the chance of a heart attack or stroke. The chance may increase with longer use of this medicine and in people who have heart disease. If you take aspirin to prevent heart attack or stroke, talk with your doctor or health health care specialist. Do not take other medicines that contain aspirin, ibuprofen, or naproxen with this medicine. Side effects such as stomach upset, nausea, or ulcers may be more likely to occur. Many medicines available without a prescription should not be taken with this medicine. This medicine can cause ulcers and bleeding in the stomach and intestines at any time during treatment. Ulcers and bleeding can happen without warning symptoms and can cause . To reduce your risk, do not smoke cigarettes or drink alcohol while you are taking this medicine. You may get drowsy or dizzy. Do not drive, use machinery, or do anything that needs mental alertness until you know how this medicine affects you. Do not stand or sit up quickly, especially if you are an older patient. This reduces the risk of dizzy or fainting spells. This medicine can cause you to bleed more easily. Try to avoid damage to your teeth and gums when you brush or floss your teeth. You have been given the following additional information: Hydrocodone Bitartrate, Acetaminophen Oral tablet Cyclobenzaprine Hydrochloride Oral tablet Ibuprofen Oral tablet Right arm until well and for 5 days. Do not work for two days. (Electronically signed by Jeffy Grayson, 03/10/2017 23:12)
--- NOTE | 2017-03-13 08:13 | ED MAR SUMMARY ---
..... Medication Administration Record [facility] [address] [place] [address] Patient: MAYE FELIX Visit ID: [id number] 47y, F Weight: 172.3 kg Height/Length: 69 in BMI: 56.1 ALLERGIES: No Known Drug Allergy Given 20:03/10/2017 Romi Kent R.N. Medication Administered: ATIVAN [PO] (LORAZEPAM), Dose: 2 mg Tablets PO. Medication Ordered: Ativan PO 2 mg (NOW). Given 20:03/10/2017 Romi Kent RLincolnNLincoln Medication Administered: TORADOL [IM] (KETOROLAC TROMETHAMINE), Dose: 60 mg IM. Medication Ordered: Toradol IM 60 mg (NOW).
--- NOTE | 2017-03-13 08:13 | ED MED RECONCILIATION SUMMARY ---
Patient: MAYE FELIX Medication Reconciliation Report [facility] VisitID: [id number] [address] [place] [address] 47y, F Registration Date/Time: 03/10/2017 Weight: 172.3 kg Height/Length: 69 in. BMI: 56.1 ALLERGIES: No Known Drug Allergy The patient's Home Medications are listed below: THE FOLLOWING MEDICATIONS NEED TO BE RECONCILED: Unknown Blood Pressure Medicine The source(s) of the original Home Medication information: Not obtained. The following Medications were given to the patient in the Emergency Department: Ativan [PO] PO 2 mg, administered: 03/10/2017 8:39:00 PM Toradol [IM] IM 60 mg, administered: 03/10/2017 8:39:00 PM The following Medications were prescribed to the patient: Motrin IB 200 mg (available over the counter): take 3 orally every 8 hours for 5 days, as needed for pain or stiffness -- Jeffy Grayson Hydrocodone/APAP 5mg / 325mg: take 1-2 orally every 6 hours as needed for pain. Dispense fifteen (15). No refill. -- Jeffy Grayson Flexeril 5 mg: take 1-2 orally every 8 hours as needed for muscle spasm. Dispense ten (10). No refills. Substitution is permissible. -- Jeffy Grayson
--- NOTE | 2017-03-13 08:13 | ED MED RECONCILIATION SUMMARY ---
Patient: MAYE FELIX Medication Reconciliation Report [facility] VisitID: [id number] [address] [place] [address] 47y, F Registration Date/Time: 03/10/2017 Weight: 172.3 kg Height/Length: 69 in. BMI: 56.1 ALLERGIES: No Known Drug Allergy The patient's Home Medications are listed below: THE FOLLOWING MEDICATIONS NEED TO BE RECONCILED: Unknown Blood Pressure Medicine The source(s) of the original Home Medication information: Not obtained. The following Medications were given to the patient in the Emergency Department: Ativan [PO] PO 2 mg, administered: 03/10/2017 8:39:00 PM Toradol [IM] IM 60 mg, administered: 03/10/2017 8:39:00 PM The following Medications were prescribed to the patient: Motrin IB 200 mg (available over the counter): take 3 orally every 8 hours for 5 days, as needed for pain or stiffness -- Jeffy Grayson Hydrocodone/APAP 5mg / 325mg: take 1-2 orally every 6 hours as needed for pain. Dispense fifteen (15). No refill. -- Jeffy Grayson Flexeril 5 mg: take 1-2 orally every 8 hours as needed for muscle spasm. Dispense ten (10). No refills. Substitution is permissible. -- Jeffy Grayson
== END 2017-03-10 20:48 | disposition home or self-care (01) ==
LOC: ED SRH 19:24
DX: S29.012A Strain of muscle and tendon of back wall of thorax, initial encounter (principal); X50.9XXA Other and unspecified overexertion or strenuous movements or postures, initial encounter; Y93.89 Activity, other specified; Y99.0 Civilian activity done for income or pay; Y92.89 Other specified places as the place of occurrence of the external cause; I10 Essential (primary) hypertension